=== PATIENT | male | born 1970 | race African-American/Black ===

== ENCOUNTER 2017-05-30 08:40 | Emergency (ER) | payer OTHER ==
[2017-05-30 08:50] VITALS: BP 141/78; PULSE 62; RESP 16; TEMP 96.9
--- NOTE | 2017-05-30 09:07 | ED ---
General Adult HPI - General Chief complaint: Extremity Injury, Upper Stated complaint: IHS-Elbow Laceration Time Seen by Provider: 05/30/17 08:46 Source: patient, RN notes reviewed Mode of arrival: ambulatory Limitations: no limitations - History of Present Illness Initial comments: 47-year-old male presents to the emergency department with a chief complaint of right elbow laceration. Patient states he hurt it on the press at work today. Patient has noticed some bleeding and pain to the area so he thought that he should be seen. Patient does not recall his last tetanus vaccination. Patient states that he is having some pain and swelling around the site. Patient states there is no other injury from the incident.Patient denies any recent fever, chills, shortness of breath, chest pain, back pain, abdominal pain, nausea vomiting, numbness or tingling, dysuria or hematuria, constipation or diarrhea, headaches or visual changes, or any other current symptoms. - Related Data Home Medications Medication Instructions Recorded Confirmed Ascorbic Acid [Vitamin C] 500 mg PO DAILY 05/30/17 05/30/17 [place]-3 Fatty Acids/Fish Oil [Fish 1 cap PO BID 05/30/17 05/30/17 Oil 1,000 mg Softgel] Allergies Allergy/AdvReac Type Severity Reaction Status Date / Time No Known Allergies Allergy Verified 05/30/17 09:24 Review of Systems ROS Statement: Those systems with pertinent positive or pertinent negative responses have been documented in the HPI. ROS Other: All systems not noted in ROS Statement are negative. Past Medical History Past Medical History: Hyperlipidemia, Hypertension, Osteoarthritis (OA) History of Any Multi-Drug Resistant Organisms: None Reported Past Surgical History: No Surgical Hx Reported Past Psychological History: No Psychological Hx Reported Smoking Status: Never smoker Past Alcohol Use History: Rare Past Drug Use History: None Reported General Exam - General Exam Comments Initial Comments: General: The patient is awake and alert, in no distress, and does not appear acutely ill. Neck: The neck is supple, there is no tenderness. Cardiovascular: There is a regular rate and rhythm. No murmur, rub or gallop is appreciated. Respiratory: Lungs are clear to auscultation, respirations are non-labored, breath sounds are equal. No wheezes, stridor, rales, or rhonchi. Musculoskeletal: Sensation intact with 2+ pulses to the right upper externa. Full range of motion of the right elbow and right wrist. Patient does appear to have a 4 cm laceration along the right elbow. 5 out of 5 muscle strength testing throughout. Neurological: CN II-XII intact, There are no obvious motor or sensory deficits. Coordination appears grossly intact. Speech is normal. Skin: Skin is warm and dry and no rashes or lesions are noted. Psychiatric: Normal mood and affect. Limitations: no limitations Course Vital Signs 05/30/17 08:47 Temperature 96.9 F L Pulse Rate 62 Respiratory 16 Rate Blood Pressure 141/78 O2 Sat by Pulse 100 Oximetry Procedures - Procedures Initial comment: Consent was obtained The skin was anesthetized with 1% lidocaine 6 ml. The laceration was then cleansed with Betadine and irrigated with normal saline. The wound was inspected, and there was no evidence of injury to deep structures. No foreign body was noted in the wound. A total of 1 subcutaneous sutures were placed using 5-0 Vicryl followed by 8 skin sutures utilizing 5-0 nylon to a 6 cm right forearm laceration. Medical Decision Making - Medical Decision Making 47-year-old male presents emergency 5 chief complaint of right elbow laceration. This time x-rays of his laceration care follow-up and all the patient's questions. He stated the [facility] management plan. All questions have. This patient will be discharged home. - Radiology Data Radiology results: report reviewed, image reviewed Disposition Clinical Impression: Laceration of right forearm Disposition: HOME SELF-CARE Condition: Stable Instructions: Laceration (ED), Care For Your Stitches (ED) Additional Instructions: Please use medication as discussed. Please follow up with family doctor if symptoms have not improved over the next two days. Please return to the emergency room if your symptoms increase or worsen or for any other concerns. Please return to the emergency room in 8-10 days to have sutures removed. Please leave wound covered for the first 24-48 hours and then leave open to air after that time. Please use clean soap and water to clean the suture area to prevent scabbing over the top of your sutures. Please watch for any signs of infection which may include but not limited to increased pain, swelling, redness , fever or chills. Please return to the emergency room if any signs of infection do occur. Please return to the emergency room for any other concerns or complications. Referrals: Navdeep Perkins MD [Primary Care Provider] - 1-2 days Time of Disposition: 09:56
--- NOTE | 2017-05-30 09:21 | XR ---
EXAMINATION TYPE: XR elbow complete RT DATE OF EXAM: 05/30/2017 CLINICAL HISTORY: Laceration just distal to the elbow after arm was caught in the proximal TECHNIQUE: Frontal, lateral and oblique images of the right elbow are obtained. COMPARISON: None FINDINGS: There is no acute fracture/dislocation evident in the right elbow. No abnormal fat pad si gns are seen. Soft tissue swelling is seen of the proximal dorsal forearm with associated laceration. No radiopaque foreign bodies are noted. Subcutaneous emphysema is seen.. Well-corticated deformity i s seen of the coronoid, likely relating to prior injury. IMPRESSION: 1. Subcutaneous emphysema, laceration, and soft tissue swelling of the dorsal proximal right forearm with no radiopaque foreign body. 2. There is no acute fracture or dislocation in the right elbow.
[2017-05-30] MEDS ORDERED: DIPH,PERTUS(ACELL)TETVAC-LF 0.5 ML VIAL IM ONE (09:56)
== END 2017-05-30 10:18 | disposition home or self-care (01) ==
LOC: EC 08:40
DX: S51.811A Laceration without foreign body of right forearm, initial encounter (principal); Z79.899 Other long term (current) drug therapy; Z23 Encounter for immunization; W23.0XXA Caught, crushed, jammed, or pinched between moving objects, initial encounter; Y92.69 Other specified industrial and construction area as the place of occurrence of the external cause; Y99.0 Civilian activity done for income or pay
CPT/HCPCS: 12002; 90471; 90715; 99283

== ENCOUNTER 2017-06-01 10:58 | Emergency (ER) | payer OTHER ==
--- NOTE | 2017-06-01 11:25 | ED ---
General Adult HPI - General Chief complaint: Extremity Injury, Upper Stated complaint: IHS, f/u injury Time Seen by Provider: 06/01/17 11:18 Source: patient, RN notes reviewed, old records reviewed Mode of arrival: ambulatory Limitations: no limitations - History of Present Illness Initial comments: This is a 39-year-old male to the ER for evaluation of recheck and orthopedic injury, orthopedic injury included crush injury of right arm with pain. Increasing pain and increasing swelling of right upper extremity. Severe. Patient's enema IHS for further evaluation - Related Data Home Medications Medication Instructions Recorded Confirmed Ascorbic Acid [Vitamin C] 500 mg PO DAILY 05/30/17 06/01/17 Bisoprolol-Hctz 5-6.25 mg [Ziac 1 tab PO DAILY 05/30/17 06/01/17 5-6.25] Diclofenac Sodium [Voltaren] 75 mg PO BID 05/30/17 06/01/17 [place]-3 Fatty Acids/Fish Oil [Fish 1 cap PO BID 05/30/17 06/01/17 Oil 1,000 mg Softgel] Allergies Allergy/AdvReac Type Severity Reaction Status Date / Time No Known Allergies Allergy Verified 06/01/17 11:34 Review of Systems ROS Statement: Those systems with pertinent positive or pertinent negative responses have been documented in the HPI. ROS Other: All systems not noted in ROS Statement are negative. Past Medical History Past Medical History: Hyperlipidemia, Hypertension, Osteoarthritis (OA) History of Any Multi-Drug Resistant Organisms: None Reported Past Surgical History: No Surgical Hx Reported Past Psychological History: No Psychological Hx Reported Smoking Status: Never smoker Past Alcohol Use History: Rare Past Drug Use History: None Reported General Exam Limitations: no limitations General appearance: alert, in no apparent distress Head exam: Present: atraumatic, normocephalic, normal inspection Eye exam: Present: normal appearance, PERRL, EOMI. Absent: scleral icterus, conjunctival injection, periorbital swelling ENT exam: Present: normal exam, mucous membranes moist Neck exam: Present: normal inspection. Absent: tenderness, meningismus, lymphadenopathy Respiratory exam: Present: normal lung sounds bilaterally. Absent: respiratory distress, wheezes, rales, rhonchi, stridor Cardiovascular Exam: Present: regular rate, normal rhythm, normal heart sounds. Absent: systolic murmur, diastolic murmur, rubs, gallop, clicks GI/Abdominal exam: Present: soft, normal bowel sounds. Absent: distended, tenderness, guarding, rebound, rigid Extremities exam: Present: normal inspection, full ROM, normal capillary refill. Absent: tenderness, pedal edema, joint swelling, calf tenderness Back exam: Present: normal inspection Neurological exam: Present: alert, oriented X3, CN II-XII intact Psychiatric exam: Present: normal affect, normal mood Skin exam: Present: warm, dry, intact, normal color. Absent: rash Course Vital Signs 06/01/17 06/01/17 11:11 13:53 Temperature 98.6 F Pulse Rate 85 74 Respiratory 18 18 Rate Blood Pressure 131/78 121/62 O2 Sat by Pulse 100 100 Oximetry - Reevaluation(s) Reevaluation #1: 06/01/17 13:10 Concern for compartment syndrome, patient will be followed by orthopedics here in the emergency department Reevaluation #2: 06/01/17 14:15 Patient is seen and evaluated regarding compartment syndrome, at this time orthopedics thinks no comparison. But will continue to follow patient in consult Medical Decision Making - Medical Decision Making 39 LDF revocation significant right upper extremity pain and edema and swelling. Brawny edema, hematoma, patient will follow-up with orthopedics , they do not think we of compartment syndrome at this time patient does have positive elevated CK, mild rhabdomyolysis will admit for duration and pain control - Lab Data Result diagrams: 06/01/17 12:08 06/01/17 12:08 Lab Results 06/01/17 06/01/17 06/01/17 Range/Units 12:08 12:08 12:08 WBC 6.8 (3.8-10.6) k/uL RBC 4.60 (4.30-5.90) m/uL Hgb 12.8 L (13.0-17.5) gm/dL Hct 38.4 L (39.0-53.0) % MCV 83.4 (80.0-100.0) fL MCH 27.8 (25.0-35.0) pg MCHC 33.4 (31.0-37.0) g/dL RDW 13.1 (11.5-15.5) % Plt Count 234 (150-450) k/uL Neutrophils % 71 % Lymphocytes % 17 % Monocytes % 7 % Eosinophils % 2 % Basophils % 1 % Neutrophils # 4.8 (1.3-7.7) k/uL Lymphocytes # 1.1 (1.0-4.8) k/uL Monocytes # 0.5 (0-1.0) k/uL Eosinophils # 0.1 (0-0.7) k/uL Basophils # 0.0 (0-0.2) k/uL Sodium 139 (137-145) mmol/L Potassium 4.1 (3.5-5.1) mmol/L Chloride 104 (98-107) mmol/L Carbon Dioxide 27 (22-30) mmol/L Anion Gap 8 mmol/L BUN 7 L (9-20) mg/dL Creatinine 0.90 (0.66-1.25) mg/dL Est GFR (MDRD) Af Amer >60 (>60 ml/min/1.73 sqM) Est GFR (MDRD) Non-Af >60 (>60 ml/min/1.73 sqM) Glucose 94 (74-99) mg/dL Calcium 9.2 (8.4-10.2) mg/dL Phosphorus 3.3 (2.5-4.5) mg/dL Magnesium 1.7 (1.6-2.3) mg/dL Total Bilirubin 0.7 (0.2-1.3) mg/dL AST 71 H (17-59) U/L ALT 39 (21-72) U/L Alkaline Phosphatase 60 (38-126) U/L Total Creatine Kinase 2500 H (55-170) U/L CK-MB (CK-2) 8.3 H* (0.0-2.4) ng/mL CK-MB (CK-2) Rel Index Total Protein 6.5 (6.3-8.2) g/dL Albumin 3.7 (3.5-5.0) g/dL - Radiology Data Radiology results: report reviewed (Ultrasound right upper extremity negative for DVT), image reviewed Disposition Clinical Impression: Right upper limb pain, Arm edema, Hematoma, Rhabdomyolysis Disposition: ADMITTED IP TO THIS [facility] Condition: Fair Instructions: Contusion in Adults (ED), Hematoma (ED) Referrals: Navdeep Perkins MD [Primary Care Provider] - 1-2 days
[2017-06-01] MEDS ORDERED: SODIUM CHLORIDE 0.9% 1,000 ML IV STA ×2 (11:53)
[2017-06-01 12:25] LABS: Basophils % (A) 1 %; CH 27.1; CHCM 32.6; Eosinophils # (A) 0.1 k/uL (0-0.7); Eosinophils % (A) 2 %; HCT 38.4 % (39.0-53.0); HGB 12.8 gm/dL (13.0-17.5); Luc # (Auto) 0.16; Luc % (Auto) 2; Lymphocytes # (A) 1.1 k/uL (1.0-4.8); Lymphocytes % (A) 17 %; MCH 27.8 pg (25.0-35.0); MCHC 33.4 g/dL (31.0-37.0); MCV 83.4 fL (80.0-100.0); Mean Platelet Volume 6.8; Monocytes # (A) 0.5 k/uL (0-1.0); Monocytes % (A) 7 %; Neutrophils # (A) 4.8 k/uL (1.3-7.7); Neutrophils % (A) 71 %; RDW 13.1 % (11.5-15.5); WBC 6.8 k/uL (3.8-10.6); WBC (Perox) 6.88
[2017-06-01 12:39] LABS: ALT 39 U/L (21-72); AST 71 U/L (17-59); Alkaline Phosphatase 60 U/L (38-126); Anion Gap 8 mmol/L; Blood Urea Nitrogen 7 mg/dL (9-20); Calcium 9.2 mg/dL (8.4-10.2); Carbon Dioxide 27 mmol/L (22-30); Chloride 104 mmol/L (98-107); Glucose 94 mg/dL (74-99); Magnesium 1.7 mg/dL (1.6-2.3); Non-African American GFR(MDRD) >60 (>60 ml/min/1.73 sqM); Phosphorous 3.3 mg/dL (2.5-4.5); Potassium 4.1 mmol/L (3.5-5.1); Sodium 139 mmol/L (137-145); Total Bilirubin 0.7 mg/dL (0.2-1.3); Total Protein 6.5 g/dL (6.3-8.2)
[2017-06-01 13:06] LABS: Creatine Kinase MB 8.3 ng/mL (0.0-2.4)
[2017-06-01] MEDS ORDERED: SODIUM CHLORIDE 0.9% 2,000 ML IV STA (13:30)
--- NOTE | 2017-06-01 13:34 | US ---
EXAMINATION TYPE: US venous doppler duplex UE RT DATE OF EXAM: 06/01/2017 COMPARISON: NONE CLINICAL HISTORY: Pain. 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 There is normal flow, compressibility and vascular waveforms. IMPRESSION: No sonographic evidence of deep venous or process within the right upper extremity.
--- NOTE | 2017-06-01 14:45 | ED ---
Medical Decision Making - Medical Decision Making 47 male here for evaluation. Patient refuses same hospital at this time, understands risk factors of kidney injury, worsening damage to the upper extremity, patient again still states that he has a PEEP of 5 with orthopedics tomorrow, does not want to stay in the hospital at this time - Lab Data Result diagrams: 06/01/17 12:08 06/01/17 12:08 Lab Results 06/01/17 06/01/17 06/01/17 Range/Units 12:08 12:08 12:08 WBC 6.8 (3.8-10.6) k/uL RBC 4.60 (4.30-5.90) m/uL Hgb 12.8 L (13.0-17.5) gm/dL Hct 38.4 L (39.0-53.0) % MCV 83.4 (80.0-100.0) fL MCH 27.8 (25.0-35.0) pg MCHC 33.4 (31.0-37.0) g/dL RDW 13.1 (11.5-15.5) % Plt Count 234 (150-450) k/uL Neutrophils % 71 % Lymphocytes % 17 % Monocytes % 7 % Eosinophils % 2 % Basophils % 1 % Neutrophils # 4.8 (1.3-7.7) k/uL Lymphocytes # 1.1 (1.0-4.8) k/uL Monocytes # 0.5 (0-1.0) k/uL Eosinophils # 0.1 (0-0.7) k/uL Basophils # 0.0 (0-0.2) k/uL Sodium 139 (137-145) mmol/L Potassium 4.1 (3.5-5.1) mmol/L Chloride 104 (98-107) mmol/L Carbon Dioxide 27 (22-30) mmol/L Anion Gap 8 mmol/L BUN 7 L (9-20) mg/dL Creatinine 0.90 (0.66-1.25) mg/dL Est GFR (MDRD) Af Amer >60 (>60 ml/min/1.73 sqM) Est GFR (MDRD) Non-Af >60 (>60 ml/min/1.73 sqM) Glucose 94 (74-99) mg/dL Calcium 9.2 (8.4-10.2) mg/dL Phosphorus 3.3 (2.5-4.5) mg/dL Magnesium 1.7 (1.6-2.3) mg/dL Total Bilirubin 0.7 (0.2-1.3) mg/dL AST 71 H (17-59) U/L ALT 39 (21-72) U/L Alkaline Phosphatase 60 (38-126) U/L Total Creatine Kinase 2500 H (55-170) U/L CK-MB (CK-2) 8.3 H* (0.0-2.4) ng/mL CK-MB (CK-2) Rel Index Total Protein 6.5 (6.3-8.2) g/dL Albumin 3.7 (3.5-5.0) g/dL Disposition Clinical Impression: Right upper limb pain, Arm edema, Hematoma, Rhabdomyolysis Disposition: HOME SELF-CARE Condition: Fair
[2017-06-01 15:05] VITALS: BP 139/68; PULSE 67; RESP 24; TEMP 97.1
[2017-06-02] MEDS ORDERED: ENOXAPARIN 40 MG/0.4 ML SYRINGE SQ SCH (09:00)
== END 2017-06-01 15:11 | disposition home or self-care (01) ==
LOC: EC 10:58 → 4MS4W 14:16 → UNDOADMIN 14:16
DX: S40.021D Contusion of right upper arm, subsequent encounter (principal); R60.0 Localized edema; M62.82 Rhabdomyolysis; R79.89 Other specified abnormal findings of blood chemistry; M19.90 Unspecified osteoarthritis, unspecified site; I10 Essential (primary) hypertension; Z79.1 Long term (current) use of non-steroidal anti-inflammatories (NSAID); Z79.899 Other long term (current) drug therapy
CPT/HCPCS: 36415; 80053; 82550; 82553; 83735; 84100; 85025; 96360; 96361; 99284

== ENCOUNTER 2017-06-02 13:05 | Emergency (ER) | payer OTHER ==
[2017-06-02 13:17] VITALS: RESP 18
--- NOTE | 2017-06-02 13:45 | ED ---
General Adult HPI - General Chief complaint: Recheck/Abnormal Lab/Rx Stated complaint: abnormal labs Time Seen by Provider: 06/02/17 13:38 Source: patient, RN notes reviewed, old records reviewed Mode of arrival: ambulatory Limitations: no limitations - History of Present Illness Initial comments: Patient 47-year-old male who presents emergency room today with a chief complaint of needing repeat labs. Patient does not that he was seen here in the emergency room yesterday diagnosed with rhabdomyolysis but left AGAINST MEDICAL ADVICE. Patient states he didn't follow [place] and was. Return here to the emergency room to have labs repeated. She is experiencing some pain some discomfort to the right forearm and elbow area. States his arm was trapped in a press at work that occurred 3 days ago. Patient states they cause a laceration which she did have cleaned and closed. Patient denies any other complaints or symptoms. Patient denies any recent fever, chills, shortness of breath, chest pain, back pain, abdominal pain, nausea or vomiting, numbness or tingling, dysuria or hematuria, constipation or diarrhea, headaches or visual changes, or any other complaints. - Related Data Home Medications Medication Instructions Recorded Confirmed Ascorbic Acid [Vitamin C] 500 mg PO DAILY 05/30/17 06/02/17 Bisoprolol-Hctz 5-6.25 mg [Ziac 1 tab PO DAILY 05/30/17 06/02/17 5-6.25] Diclofenac Sodium [Voltaren] 75 mg PO BID 05/30/17 06/02/17 [place]-3 Fatty Acids/Fish Oil [Fish 1 cap PO BID 05/30/17 06/02/17 Oil 1,000 mg Softgel] Acetaminophen Tab [Tylenol Tab] 650 mg PO Q4H PRN 06/02/17 06/02/17 Allergies Allergy/AdvReac Type Severity Reaction Status Date / Time No Known Allergies Allergy Verified 06/02/17 13:29 Review of Systems ROS Statement: Those systems with pertinent positive or pertinent negative responses have been documented in the HPI. ROS Other: All systems not noted in ROS Statement are negative. Past Medical History Past Medical History: Hyperlipidemia, Hypertension, Osteoarthritis (OA) History of Any Multi-Drug Resistant Organisms: None Reported Past Surgical History: No Surgical Hx Reported Past Psychological History: No Psychological Hx Reported Smoking Status: Never smoker Past Alcohol Use History: Rare Past Drug Use History: None Reported General Exam - General Exam Comments Initial Comments: General: The patient is awake and alert, in no distress, and does not appear acutely ill. Neck: The neck is supple, there is no tenderness or JVD. Cardiovascular: There is a regular rate and rhythm. No murmur, rub or gallop is appreciated. Respiratory: Lungs are clear to auscultation, respirations are non-labored, breath sounds are equal. No wheezes, stridor, rales, or rhonchi. Musculoskeletal: Patient shows good range of motion. Sensations are intact. Patient does have moderate swelling to the right forearm and elbow area. Sensations intact with pulses equal bilaterally 2+. Neurological: A&O x 3. CN II-XII intact, There are no obvious motor or sensory deficits. Coordination appears grossly intact. Speech is normal. Skin: Skin is warm and dry and no rashes or lesions are noted. Psychiatric: Normal mood and affect. Limitations: no limitations Course Vital Signs 06/02/17 06/02/17 13:10 14:36 Temperature 98.3 F Pulse Rate 63 71 Respiratory 18 18 Rate Blood Pressure 127/70 140/68 O2 Sat by Pulse 100 99 Oximetry Medical Decision Making - Medical Decision Making Patient reexamined at this time shows no signs of distress. Case discussed in detail with attending physician Dr. Mederos. Patient labs been reviewed shows CK at 2500 again today. Patient given 2 L of fluids. Patient states he would like to be discharged home. Patient is advised to increase his oral fluids. CK has not elevated the last 24 hours. He does admit that the pain and swelling to the right arm is improved from yesterday. Will be discharged advised follow-up with family doctor. Advised return here to emergency room if any symptoms increase worsen. - Lab Data Result diagrams: 06/02/17 13:12 06/02/17 13:12 Lab Results 06/02/17 06/02/17 06/02/17 Range/Units 13:12 13:12 13:12 WBC 5.9 (3.8-10.6) k/uL RBC 4.27 L (4.30-5.90) m/uL Hgb 11.9 L (13.0-17.5) gm/dL Hct 35.7 L (39.0-53.0) % MCV 83.6 (80.0-100.0) fL MCH 28.0 (25.0-35.0) pg MCHC 33.5 (31.0-37.0) g/dL RDW 13.8 (11.5-15.5) % Plt Count 227 (150-450) k/uL Neutrophils % 70 % Lymphocytes % 17 % Monocytes % 8 % Eosinophils % 2 % Basophils % 1 % Neutrophils # 4.1 (1.3-7.7) k/uL Lymphocytes # 1.0 (1.0-4.8) k/uL Monocytes # 0.4 (0-1.0) k/uL Eosinophils # 0.1 (0-0.7) k/uL Basophils # 0.0 (0-0.2) k/uL Sodium 139 (137-145) mmol/L Potassium 4.2 (3.5-5.1) mmol/L Chloride 104 (98-107) mmol/L Carbon Dioxide 28 (22-30) mmol/L Anion Gap 7 mmol/L BUN 6 L (9-20) mg/dL Creatinine 0.90 (0.66-1.25) mg/dL Est GFR (MDRD) Af Amer >60 (>60 ml/min/1.73 sqM) Est GFR (MDRD) Non-Af >60 (>60 ml/min/1.73 sqM) Glucose 88 (74-99) mg/dL Calcium 9.1 (8.4-10.2) mg/dL Total Bilirubin 0.7 (0.2-1.3) mg/dL AST 74 H (17-59) U/L ALT 45 (21-72) U/L Alkaline Phosphatase 56 (38-126) U/L Creatine Kinase 2506 H (55-170) U/L Total Protein 6.7 (6.3-8.2) g/dL Albumin 3.8 (3.5-5.0) g/dL Urine Color Colorless Urine Appearance Clear (Clear) Urine pH 5.0 (5.0-8.0) Ur Specific [place] 1.003 (1.001-1.035) Urine Protein Negative (Negative) Urine Glucose (UA) Negative (Negative) Urine Ketones Negative (Negative) Urine Blood Negative (Negative) Urine Nitrite Negative (Negative) Urine Bilirubin Negative (Negative) Urine Urobilinogen <2.0 (<2.0) mg/dL Ur Leukocyte Esterase Negative (Negative) Disposition Clinical Impression: Rhabdomyolysis, Arm edema Disposition: HOME SELF-CARE Condition: Good Instructions: Rhabdomyolysis (ED) Additional Instructions: Please follow family doctor over the next 2 days. Please increase oral fluids as discussed. Please return here to the emergency room if any symptoms increase or worsen or for any other concerns. Referrals: Navdeep Perkins MD [Primary Care Provider] - 1-2 days Time of Disposition: 15:48
[2017-06-02 13:54] LABS: Basophils % (A) 1 %; CH 28.1; CHCM 33.8; Eosinophils # (A) 0.1 k/uL (0-0.7); Eosinophils % (A) 2 %; HCT 35.7 % (39.0-53.0); HDW 2.18; HGB 11.9 gm/dL (13.0-17.5); Luc # (Auto) 0.15; Luc % (Auto) 3; Lymphocytes % (A) 17 %; MCHC 33.5 g/dL (31.0-37.0); MCV 83.6 fL (80.0-100.0); Mean Platelet Volume 7.6; Monocytes # (A) 0.4 k/uL (0-1.0); Monocytes % (A) 8 %; Neutrophils # (A) 4.1 k/uL (1.3-7.7); Neutrophils % (A) 70 %; RBC 4.27 m/uL (4.30-5.90); RDW 13.8 % (11.5-15.5); WBC 5.9 k/uL (3.8-10.6)
[2017-06-02 14:03] LABS: ALT 45 U/L (21-72); AST 74 U/L (17-59); Alkaline Phosphatase 56 U/L (38-126); Anion Gap 7 mmol/L; Blood Urea Nitrogen 6 mg/dL (9-20); Calcium 9.1 mg/dL (8.4-10.2); Carbon Dioxide 28 mmol/L (22-30); Chloride 104 mmol/L (98-107); Glucose 88 mg/dL (74-99); Non-African American GFR(MDRD) >60 (>60 ml/min/1.73 sqM); Potassium 4.2 mmol/L (3.5-5.1); Sodium 139 mmol/L (137-145); Total Bilirubin 0.7 mg/dL (0.2-1.3); Total Protein 6.7 g/dL (6.3-8.2)
[2017-06-02 14:04] LABS: Appearance,Urine Clear (Clear); Bilirubin,Urine Negative (Negative); Glucose,Urine (UA) Negative (Negative); Ketones,Urine Negative (Negative); Leukocyte Esterase,Urine Negative (Negative); Nitrite,Urine Negative (Negative); Protein,Urine Negative (Negative); Specific Gravity,Urine 1.003 (1.001-1.035); UA Billing (MACRO vs. MICRO) CHEM; Urobilinogen,Urine <2.0 mg/dL (<2.0)
[2017-06-02 14:20] LABS: Creatine Kinase 2506 U/L (55-170)
[2017-06-02] MEDS ORDERED: SODIUM CHLORIDE 0.9% 1,000 ML IV STA ×2 (14:49)
[2017-06-02 16:12] VITALS: BP 142/71; PULSE 66; TEMP 97.1
== END 2017-06-02 16:15 | disposition home or self-care (01) ==
LOC: EC 13:05
DX: M62.82 Rhabdomyolysis (principal); R60.0 Localized edema; I10 Essential (primary) hypertension; M19.90 Unspecified osteoarthritis, unspecified site; Z79.1 Long term (current) use of non-steroidal anti-inflammatories (NSAID); Z79.899 Other long term (current) drug therapy
CPT/HCPCS: 36415; 80053; 81003; 82550; 85025; 96360; 99283

== ENCOUNTER → 2017-06-09 | Outpatient (CLI) | payer OTHER ==
--- NOTE | 2017-06-09 12:07 | XR ---
EXAMINATION TYPE: XR forearm RT DATE OF EXAM: 06/09/2017 CLINICAL HISTORY: pain TECHNIQUE: Frontal and lateral images of the right forearm are obtained. COMPARISON: None. FINDINGS: There is no acute fracture/dislocation evident. Chronic deformity of the distal ulna. The joint spaces appear within normal limits. The overlying soft tissue appears unremarkable. IMPRESSION: There is no acute fracture or dislocation. ICD 10 NO FRACTURE, INITIAL EVALUATION
== END | disposition home or self-care (01) ==
LOC: RADXRMAIN 11:51
PROVIDERS: ATTEND Emergency Medicine
DX: S57.81XD Crushing injury of right forearm, subsequent encounter (principal)

== ENCOUNTER → 2019-01-23 | Outpatient (CLI) | payer OTHER ==
--- NOTE | 2019-01-23 10:51 | XR ---
Right knee HISTORY: Pain and swelling, injury 3 views of the right knee There is marginal spurring tricompartmentally. Joint space loss is greatest in the lateral compartmen t and there is a valgus deformity. There is a joint effusion and soft tissue swelling present. Bone m ineralization is maintained. Possible bone island in the proximal metaphyseal right tibia. No fractur e or dislocation. IMPRESSION: Osteoarthritis, joint effusion and soft tissue swelling.
== END | disposition home or self-care (01) ==
LOC: RADXRMAIN 10:15
PROVIDERS: ATTEND Emergency Medicine
DX: M17.11 Unilateral primary osteoarthritis, right knee (principal)

== ENCOUNTER → 2019-02-06 | Outpatient (CLI) | payer BC ==
--- NOTE | 2019-02-06 12:50 | XR ---
EXAMINATION TYPE: XR orbit complete bilateral DATE OF EXAM: 02/06/2019 COMPARISON: NONE HISTORY: 48-year-old male for MRI clearance TECHNIQUE: None. FINDINGS: Orbits appear symmetrical. No retained radiopaque foreign body seen in the orbits or visual ized face. IMPRESSION: No retained metallic debris seen within the orbits. Clear for MRI.
--- NOTE | 2019-02-06 14:52 | MR ---
EXAMINATION TYPE: MR knee RT wo con DATE OF EXAM: 02/06/2019 COMPARISON: None HISTORY: Right knee pain TECHNIQUE: Multiplanar, multisequence images of the knee is performed without IV contrast. FINDINGS: MEDIAL MENISCUS: Anterior and posterior horns are intact without tear. LATERAL MENISCUS: Markedly diminutive posterior horn lateral meniscus CRUCIATE LIGAMENTS: The anterio r and posterior cruciate ligaments are intact and unremarkable. COLLATERAL LIGAMENTS: The medial collateral ligament and lateral collateral ligament complex are inta ct and unremarkable. EXTENSOR MECHANISM: Visualized quadriceps and patellar tendons are intact. EFFUSION: Large joint effusion noted suprapatellar region with internal loose bodies identified. POPLITEAL CYST: Lao's cyst noted measuring approximately 4.2 cm in craniocaudal dimension. TRICOMPARTMENT SPACES: Moderate to severe narrowing medial tibiofemoral joint space is well severe na rrowing patellofemoral joint space itself. Extensive spur formation about the margins of the femoral condyles, tibial plateaus, patella and intercondylar regions. CARTILAGE: Cartilaginous thinning noted lateral femoral condyle and changes of chondromalacia patella . BONE MARROW SIGNAL: No focal abnormal marrow signal is appreciated. OTHER: No additional significant abnormality is appreciated. IMPRESSION: 1. Advanced changes of osteoarthritis. 2. Large joint effusion with intravenous bodies. 3. Lao's cyst. 4. Markedly diminutive posterior horn lateral meniscus may reflect postoperative change or complex te ar.
== END ==
LOC: RADMRIMAIN 12:27
PROVIDERS: ATTEND Internal Medicine
DX: Z01.818 Encounter for other preprocedural examination (principal); M25.561 Pain in right knee; M17.11 Unilateral primary osteoarthritis, right knee; M71.21 Synovial cyst of popliteal space [Baker], right knee
CPT/HCPCS: 70200

== ENCOUNTER → 2021-08-11 | Outpatient (CLI) | payer MEDICAID ==
--- NOTE | 2021-08-11 14:14 | NM ---
EXAMINATION TYPE: NM stress cardiolite complete DATE OF EXAM: 08/11/2021 COMPARISON: NONE HISTORY: 51-year-old male I 20.9, angina pectoris, chest pain TECHNIQUE: After the intravenous administration of 9.4 mCi Tc 99m Sestamibi - Rest images obtained 4 5 minutes post injection. The patient exercised using a ARTI protocol and 1 minute prior to peak e xercise was injected with 26.1 mCi Tc 99m Sestamibi - Stress images obtained 15 minutes post injectio n. FINDINGS: Targeted heart rate (143 BPM) was achieved during performance of the study (145 bpm achieved). Total exercise time 9 minutes 15 seconds. Review of stress and rest SPECT images demonstrates perfusion abn ormality along the anteroseptal and inferolateral mid and apical wall and inferoseptal mid to basal w all on rest images. However, on stress, there is moderate area of decreased perfusion along the mid inferior wall. No dis tinct perfusion abnormality. Gated analysis shows normal wall motion with an estimated left ventricu lar ejection fraction of 64 %. TID is calculated at 0.79, within normal limits. IMPRESSION: Exam limited by extensive attenuation artifacts. Unable to exclude some reversibility along the mid i nferior wall. However, this is not corroborated on the polar maps. Further clinical correlation recom mended.
--- NOTE | 2021-08-11 19:31 | EST ---
EXERCISE STRESS AGE: 51 SEX: M HT: 5'11" WT: 202 lbs. PROTOCOL: Cardiolite Aba STAGE: 3 DURATION OF EXERCISE: 9:15 HEART RATE REST: 69 BLOOD PRESSURE REST: 132/90 MAXIMUM HEART RATE ACHIEVED: 145 MAXIMUM BLOOD PRESSURE: 158/101 85% MPHR: 143 100% MPHR: 168 METS: 12.1 INDICATIONS: Chest pain CLINICAL INFORMATION: Baseline rhythm is sinus mechanism, rate of 69, normal axis and intervals, normal echocardiogram. Baseline blood pressure 132/90 mmHg. Patient exercised on Aba protocol for 9 minutes 15 seconds, reaching a peak rate of 145 beats per minute, which is equal to 85% of maximum predicted heart rate. Peak blood pressure 158/101 mmHg. Test was terminated secondary to fatigue. There was no chest pain. Electrocardiograph monitoring revealed no evidence of diagnostic ischemic ST deviation. CONCLUSION: 1. Good exercise tolerance with normal echocardiograph response to exercise. 2. No cardiac arrhythmia. MMODL / IJN: [id number] /
== END | disposition home or self-care (01) ==
LOC: RADNMMAIN 08:20
PROVIDERS: ATTEND Family Medicine
DX: R07.9 Chest pain, unspecified (principal)
CPT/HCPCS: 93017; 78452; A9500

== ENCOUNTER → 2023-02-14 | Outpatient (CLI) | payer MEDICAID ==
[2023-02-14 16:30] LABS: Basophils # (A) 0.07 X 10*3/uL (0.00-0.10); Basophils % (A) 1.2 %; Eosinophils # (A) 0.31 X 10*3/uL (0.04-0.35); Eosinophils % (A) 5.4 %; HCT 42.8 % (39.6-50.0); HGB 13.2 g/dL (13.0-17.0); Immature Grans, Automated 0.2 %; Lymphocytes # (A) 1.53 X 10*3/uL (0.90-5.00); Lymphocytes % (A) 26.7 %; MCH 26.4 pg (27.0-32.0); MCHC 30.8 g/dL (32.0-37.0); MCV 85.6 fL (80.0-97.0); Monocytes # (A) 0.47 X 10*3/uL (0.20-1.00); Monocytes % (A) 8.2 %; NRBC Per 100 WBC 0 /100 WBCS (0.0-0.0); Neutrophils # (A) 3.34 X 10*3/uL (1.80-7.70); Neutrophils % (A) 58.3 %; Platelet Count 275 X 10*3/uL (140-440); RDW 13.5 % (11.5-14.5); WBC 5.73 X 10*3/uL (4.50-10.00)
[2023-02-14 17:11] LABS: ALT 19 U/L (10-49); AST 21 U/L (14-35); African American GFR (CKD) 103.8 (60.0-200.0); Albumin 4.2 g/dL (3.8-4.9); Albumin/Globulin Ratio 1.76 (1.60-3.17); Alkaline Phosphatase 89 U/L (41-126); BUN/Creat Ratio 9.48 Ratio (12.00-20.00); Blood Urea Nitrogen 9.1 mg/dL (9.0-27.0); C Reactive Protein <0.30 mg/dL (0.00-0.80); Calcium 9.4 mg/dL (8.7-10.3); Carbon Dioxide 28.8 mmol/L (20.0-27.5); Chloride 104 mmol/L (96-109); Globulin 2.4 g/dL (1.6-3.3); Glucose 89 mg/dL (70-110); Non-African American GFR(CKD) 89.5 (60.0-200.0); Potassium 4.5 mmol/L (3.5-5.5); Prealbumin 22.4 mg/dL (18.0-42.0); Sodium 140 mmol/L (135-145); Total Protein 6.6 g/dL (6.2-8.2)
== END | disposition home or self-care (01) ==
LOC: LABWHC1 09:43
PROVIDERS: ATTEND Internal Medicine Infectious Disease
DX: L89.893 Pressure ulcer of other site, stage 3 (principal); M21.061 Valgus deformity, not elsewhere classified, right knee
CPT/HCPCS: 36415; 80053; 84134; 85025; 86140